=== PATIENT | female | born 1980 | race Caucasian/White ===

== ENCOUNTER 2018-02-24 10:21 | Inpatient (IN) | payer OTHER ==
[~2018-02-24 10:21] MED LIST: ROPIVACAINE 0.5 % 30 ML VIAL
[2018-02-24] MEDS ORDERED: LACTATED RINGER'S 1,000 ML IV (11:41)
[2018-02-24] MEDS ORDERED: LIDOCAINE 1% (MPF) 30 ML INJ INJ (12:30)
[2018-02-24] MEDS ORDERED: OXYTOCIN 30 UNITS/LR 500 ML IV ×2 (12:30)
[2018-02-24] MEDS ORDERED: CARBOPROST 250 MCG INJ IM (12:30)
[2018-02-24] MEDS ORDERED: METHYLERGONOVINE 0.2 MG INJ IM (12:30)
[2018-02-24] MEDS ORDERED: MISOPROSTOL 200 MCG TAB PR (12:30)
[2018-02-24] MEDS: LACTATED RINGER'S 1,000 ML IV ×4 (12:40→22:31)
[2018-02-24 12:44] LABS: ADD MAN DIFF? NO
[2018-02-24 12:45] LABS: WHITE BLOOD COUNT 9.4 10^3/ul (4.8-10.8)
[2018-02-24 12:45] LABS: BASOPHILS % 0.2 % (0.0-2.0); EOSINOPHILS # 0.1 10^3/ul (0.0-0.5); EOSINOPHILS % 0.6 % (0.0-7.0); HEMATOCRIT 32.9 % (37.0-47.0); HEMOGLOBIN 10.9 g/dl (12.0-16.0); LYMPHOCYTES # 1.3 10^3/ul (0.8-2.9); LYMPHOCYTES % 13.6 % (15.0-51.0); MEAN CORPUSCULAR HEMOGLOBIN 28.7 pg (29.0-33.0); MEAN CORPUSCULAR HGB CONC 33.1 g/dl (32.0-37.0); MEAN CORPUSCULAR VOLUME 86.6 fl (82.0-101.0); MEAN PLATELET VOLUME 9.7 fl (7.4-10.4); MONOCYTE # 0.7 10^3/ul (0.3-0.9); MONOCYTES % 7.5 % (0.0-11.0); NEUTROPHIL # 7.3 10^3/ul (1.6-7.5); NEUTROPHILS % 77.9 % (39.0-77.0); PLATELET COUNT 264 10^3/UL (140-415); RED CELL DISTRIBUTION WIDTH 13.6 % (11.5-14.5)
[2018-02-24] MEDS: BUTORPHANOL 2 MG INJ IV (13:03)
[2018-02-24] MEDS ORDERED: FENTAnyl 2MCG/ML-ROPIV 0.2% 100 ML (14:38)
[2018-02-24] MEDS: FENTAnyl 2MCG/ML-ROPIV 0.2% 100 ML BAG EPI (14:43)
[2018-02-24 14:50] LABS: INR 0.93; PARTIAL THROMBOPLASTIN TIME 26.7 Sec (23.0-35.0); PROTIME 12.5 Sec (11.9-14.9)
[2018-02-24] MEDS ORDERED: ONDANSETRON 4 MG INJ (14:54)
[2018-02-24] MEDS ORDERED: DIPHENHYDRAMINE 50 MG INJ IV (15:00)
[2018-02-24] MEDS ORDERED: KETOROLAC 30 MG INJ IV (15:00)
[2018-02-24] MEDS ORDERED: ZOLPIDEM 5 MG TAB PO (15:00)
[2018-02-24] MEDS ORDERED: HYDROmorphONE 0.5 MG/0.5 ML SYG IV ×2 (15:00)
[2018-02-24] MEDS ORDERED: NALOXONE (0.4 MG/ML) INJ IV (15:00)
[2018-02-24] MEDS: ONDANSETRON 4 MG INJ IV (15:08)
[2018-02-24 21:09] LABS: HEPATITIS B SURFACE ANTIGEN NEGATIVE (NEGATIVE)
[2018-02-24 21:12] LABS: RAPID PLASMA REAGIN NONREACTIVE (NR)
[2018-02-25] MEDS: FENTAnyl 2MCG/ML-ROPIV 0.2% 100 ML BAG EPI ×3 (01:40→17:00)
[2018-02-25] MEDS: ONDANSETRON 4 MG INJ IV (01:42)
[2018-02-25] MEDS: LACTATED RINGER'S 1,000 ML IV ×3 (07:03→16:16)
[2018-02-25] MEDS: OXYTOCIN 30 UNITS/LR 500 ML IV ×3 (09:37→23:41)
[2018-02-25] MEDS: CITRIC ACID/NA CITRATE 30 ML CUP PO (17:46)
[2018-02-25] MEDS: CEFAZOLIN 2 GM/50 ML (PMX) 50 ML IVPB (17:47)
[2018-02-25] MEDS ORDERED: METOCLOPRAMIDE 10 MG INJ (18:40)
[2018-02-25] MEDS ORDERED: LIDOCAINE 1.5%/EPI MPF (SDV) 30 ML VIAL (18:40)
[2018-02-25] MEDS ORDERED: ONDANSETRON 4 MG INJ (18:40)
[2018-02-25] MEDS ORDERED: morphine SULFATE/PF (10 MG/10 ML) INJ (18:48)
[2018-02-25] MEDS ORDERED: FENTAnyl 50 MCG/ML VIAL (18:52)
[2018-02-25] MEDS ORDERED: KETOROLAC 30 MG INJ (19:25)
[2018-02-25] MEDS ORDERED: NALOXONE (0.4 MG/ML) INJ IV (20:00)
[2018-02-25] MEDS ORDERED: ONDANSETRON 4 MG INJ IV ×2 (20:00)
[2018-02-25] MEDS ORDERED: morphine (1 MG/ML) 10ML SYRINGE IV ×3 (20:00)
[2018-02-25] MEDS ORDERED: DIPHENHYDRAMINE 50 MG INJ IV ×2 (20:00)
[2018-02-25] MEDS ORDERED: morphine 2 MG INJ IV ×3 (20:00)
[2018-02-25] MEDS: KETOROLAC 30 MG INJ IV (22:56)
[2018-02-25] MEDS ORDERED: NACL 0.9% 3 ML SYG IV (23:00)
[2018-02-25] MEDS ORDERED: METHYLERGONOVINE 0.2 MG INJ IM (23:00)
[2018-02-25] MEDS ORDERED: MISOPROSTOL 200 MCG TAB PR (23:00)
[2018-02-25] MEDS ORDERED: OXYTOCIN 30 UNITS/LR 500 ML IV (23:00)
[2018-02-25] MEDS ORDERED: CARBOPROST 250 MCG INJ IM (23:00)
[2018-02-26] MEDS: KETOROLAC 30 MG INJ IV ×2 (06:32→11:31)
[2018-02-26 07:17] LABS: ADD MAN DIFF? NO
[2018-02-26 07:23] LABS: BASOPHILS % 0.3 % (0.0-2.0); EOSINOPHILS # 0.1 10^3/ul (0.0-0.5); EOSINOPHILS % 0.4 % (0.0-7.0); HEMATOCRIT 27.4 % (37.0-47.0); HEMOGLOBIN 8.9 g/dl (12.0-16.0); LYMPHOCYTES # 1.3 10^3/ul (0.8-2.9); LYMPHOCYTES % 8.3 % (15.0-51.0); MEAN CORPUSCULAR HEMOGLOBIN 28.6 pg (29.0-33.0); MEAN CORPUSCULAR HGB CONC 32.5 g/dl (32.0-37.0); MEAN CORPUSCULAR VOLUME 88.1 fl (82.0-101.0); MEAN PLATELET VOLUME 10.1 fl (7.4-10.4); MONOCYTE # 0.7 10^3/ul (0.3-0.9); MONOCYTES % 4.6 % (0.0-11.0); NEUTROPHIL # 13.1 10^3/ul (1.6-7.5); PLATELET COUNT 215 10^3/UL (140-415); RED BLOOD COUNT 3.11 10^6/ul (4.20-5.40); RED CELL DISTRIBUTION WIDTH 14.4 % (11.5-14.5)
[2018-02-26 07:23] LABS: WHITE BLOOD COUNT 15.2 10^3/ul (4.8-10.8)
[2018-02-26 07:47] LABS: POSITIVE DIFF @See below
[2018-02-26] MEDS: SENNA/DOCUSATE NA (8.6MG/50MG) TAB PO ×2 (11:31→20:50)
[2018-02-26] MEDS: IBUPROFEN 600 MG TAB PO (20:17)
[2018-02-27] MEDS: IBUPROFEN 600 MG TAB PO ×4 (00:07→17:25)
[2018-02-27] MEDS: OXYCODONE/ACETAMINOPHEN (5/325) TAB PO ×2 (01:45→15:45)
[2018-02-27] MEDS: SENNA/DOCUSATE NA (8.6MG/50MG) TAB PO (10:12)
[2018-02-27] MEDS: DIPHTH/TET/ACEL PERTUSS (ADULT) 0.5 ML VIAL IM* (15:16)
== END 2018-02-27 18:44 | disposition home or self-care (01) | DRG 788 ==
LOC: OBT 10:21 → L-D 02-25 18:29 → PP1 02-25 22:09 → OBT 12:25 → L-D 12:25
PROVIDERS: Specialist
PROC: 10D00Z1 Extraction of Products of Conception, Low, Open Approach (ICD-10-PCS; principal; 2018-02-25)
DX: O62.0 Primary inadequate contractions (principal); O75.89 Other specified complications of labor and delivery; N90.89 Other specified noninflammatory disorders of vulva and perineum; G89.18 Other acute postprocedural pain; Z3A.38 38 weeks gestation of pregnancy; Z37.0 Single live birth; Z23 Encounter for immunization
CPT/HCPCS: 62319; 85025; 85610; 85730; 86592; 86850; 86900; 86901; 87340; 90715; 99464